=== PATIENT | male | born 1980 | race Caucasian/White ===

== ENCOUNTER 2016-10-26 16:41 | Emergency (ER) | payer BC, OTHER ==
--- NOTE | 2016-10-26 17:05 | ED ---
Upper Extremity HPI - General Chief Complaint: Extremity Injury, Upper Stated Complaint: Finger Smashed - [facility] Time Seen by Provider: 10/26/16 16:52 Source: patient, RN notes reviewed Mode of arrival: ambulatory Limitations: no limitations - History of Present Illness Initial Comments: Patient is a 35-year-old male presents to the emergency room for evaluation of right index finger injury. Patient states he was putting shopping carts away at work and accidentally got his finger stuck between 2 shopping carts. Patient states the shopping cart smashed his right index finger. Patient states he's having pain at the distal phalanx. Patient denies any numbness or tingling in his finger. Patient denies taking anything for pain. Patient states the incident happened around 2:30 PM. - Related Data Home Medications Medication Instructions Recorded Confirmed Ascorbic Acid [Vitamin C] 500 mg PO DAILY 10/26/16 10/26/16 Calcium Carbonate [Calcium] 600 mg PO DAILY 10/26/16 10/26/16 Multivitamins, Thera [Multivitamin 1 tab PO DAILY 10/26/16 10/26/16 (formulary)] Allergies Allergy/AdvReac Type Severity Reaction Status Date / Time No Known Allergies Allergy Verified 10/26/16 17:09 Review of Systems ROS Statement: Those systems with pertinent positive or pertinent negative responses have been documented in the HPI. ROS Other: All systems not noted in ROS Statement are negative. Past Medical History Past Medical History: No Reported History History of Any Multi-Drug Resistant Organisms: None Reported Past Surgical History: No Surgical Hx Reported Past Psychological History: No Psychological Hx Reported Smoking Status: Never smoker Past Alcohol Use History: None Reported Past Drug Use History: None Reported General Exam - General Exam Comments Initial Comments: Sitting in exam room, no distress Limitations: no limitations General appearance: alert, in no apparent distress Head exam: Present: atraumatic, normocephalic, normal inspection Eye exam: Present: normal appearance ENT exam: Present: normal exam Neck exam: Present: normal inspection Respiratory exam: Absent: respiratory distress Right Hand Wrist exam: Present: tenderness (Wrist on palpating over distal phalanx of index finger. A small subungual hematoma noted.) Neuro motor exam: Present: wrist extension intact, thumb opposition intact, thumb IP flexion intact, thumb adduction intact, fingers 2-5 abduction intact Vascular: Present: normal capillary refill (Capillary refill less than 2 seconds ), radial pulse (2+), ulnar pulse (2+) Back exam: Present: normal inspection Neurological exam: Present: alert, oriented X3, CN II-XII intact, normal gait Psychiatric exam: Present: normal affect, normal mood Skin exam: Present: warm, dry, intact, normal color. Absent: rash Course Vital Signs 10/26/16 10/26/16 16:48 18:12 Temperature 98.4 F 98.1 F Pulse Rate 64 61 Respiratory 20 18 Rate Blood Pressure 154/67 140/70 O2 Sat by Pulse 98 97 Oximetry Medical Decision Making - Medical Decision Making Patient is a 35-year-old male presents to the emergency room for evaluation of right index finger pain. Patient got his next finger caught between 2 shopping carts at work. Right finger x-ray shows soft tissue foreign body without acute fracture or dislocation seen. Foreign body from old injury. Patient has no open wounds or lacerations noted. Advised patient to ice and take Tylenol or Motrin for pain. Patient states he understands everything that was discussed with him. Return parameters discussed. Case discussed with Dr. Thorpe. - Radiology Data Radiology results: report reviewed, image reviewed Disposition Clinical Impression: Sprain of index finger Disposition: HOME SELF-CARE Condition: Good Instructions: Finger Sprain (ED) Additional Instructions: Ice on and off for 10-15 minutes for the next 24-48 hours. Tylenol or Motrin as needed for pain. Please follow up with primary care provider if symptoms are not improving in 7-10 days. If new symptoms develop or symptoms worsen, please return to the ER. Referrals: Nonstaff,Physician [Primary Care Provider] - 1-2 days Time of Disposition: 17:31
[2016-10-26] MEDS ORDERED: ACETAMINOPHEN TAB 325 MG TAB PO STA (17:17)
--- NOTE | 2016-10-26 17:42 | XR ---
EXAMINATION TYPE: XR finger RT DATE OF EXAM: 10/26/2016 5:20 PM COMPARISON: NONE HISTORY: Crushing injury today with pain TECHNIQUE: 3 views right second finger are acquired. FINDINGS: No acute fracture or dislocation is seen. Joint spaces are preserved. There is punctate foreign body level proximal metaphysis middle phalanx along the radial and volar watt rface. IMPRESSION: There is soft tissue foreign body without acute fracture or dislocation seen.
[2016-10-26 18:13] VITALS: BP 140/70; PULSE 61; RESP 18; TEMP 98.1
== END 2016-10-26 18:12 | disposition home or self-care (01) ==
LOC: EC 16:41
DX: S63.610A Unspecified sprain of right index finger, initial encounter (principal); W23.0XXA Caught, crushed, jammed, or pinched between moving objects, initial encounter; Y99.0 Civilian activity done for income or pay; Z79.899 Other long term (current) drug therapy
CPT/HCPCS: 99283

== ENCOUNTER 2018-06-12 12:29 | Emergency (ER) | payer OTHER ==
[2018-06-12 12:56] VITALS: TEMP 98.1
--- NOTE | 2018-06-12 13:22 | ED ---
Fall HPI - General Chief Complaint: Fall Stated Complaint: [facility]-trip & fall/head lac Time Seen by Provider: 06/12/18 13:10 Source: patient, RN notes reviewed, old records reviewed Mode of arrival: ambulatory - History of Present Illness Initial Comments: This Patient is a 37-year-old male who presents emergency room today with chief complaint of a fall at work. Patient reports he was walking, tripped over a pallet. He reports that he fell and hit his head on a cardboard compactor. Patient states that he hit this left side of his head and did lose consciousness. He reports he woke up shortly after with his coworker standing around him. He denies any neck pain. He states that since that time he's had no vomiting. He has been alert and oriented. Coworker dropped him off here. He does have a small laceration over his left parietal scalp. Patient reports his tetanus is up-to-date. Patient denies any other complaints. - Related Data Home Medications Medication Instructions Recorded Confirmed Ascorbic Acid [Vitamin C] 500 mg PO DAILY 10/26/16 10/26/16 Calcium Carbonate [Calcium] 600 mg PO DAILY 10/26/16 10/26/16 Multivitamins, Thera [Multivitamin 1 tab PO DAILY 10/26/16 10/26/16 (formulary)] Allergies Allergy/AdvReac Type Severity Reaction Status Date / Time No Known Allergies Allergy Verified 06/12/18 12:56 Review of Systems ROS Statement: Those systems with pertinent positive or pertinent negative responses have been documented in the HPI. ROS Other: All systems not noted in ROS Statement are negative. Past Medical History Past Medical History: No Reported History History of Any Multi-Drug Resistant Organisms: None Reported Past Surgical History: No Surgical Hx Reported Past Psychological History: No Psychological Hx Reported Smoking Status: Never smoker Past Alcohol Use History: None Reported Past Drug Use History: None Reported General Exam - General Exam Comments Initial Comments: 37-year-old male. Limitations: no limitations General appearance: alert, in no apparent distress Head exam: Present: normocephalic, normal inspection, other (Present meters hematoma over the left parietal scalp. The area of less than 1 cm laceration that is bleeding is well-controlled. There is well approximated.). Absent: atraumatic Eye exam: Present: normal appearance, PERRL, EOMI. Absent: scleral icterus, conjunctival injection, periorbital swelling ENT exam: Present: normal exam, mucous membranes moist Neck exam: Present: normal inspection. Absent: tenderness, meningismus, lymphadenopathy Respiratory exam: Present: normal lung sounds bilaterally. Absent: respiratory distress, wheezes, rales, rhonchi, stridor Cardiovascular Exam: Present: regular rate, normal rhythm, normal heart sounds. Absent: systolic murmur, diastolic murmur, rubs, gallop, clicks GI/Abdominal exam: Present: soft, normal bowel sounds. Absent: distended, tenderness, guarding, rebound, rigid Extremities exam: Present: normal inspection, full ROM, normal capillary refill. Absent: tenderness, pedal edema, joint swelling, calf tenderness Back exam: Present: normal inspection Course Vital Signs 06/12/18 12:54 Temperature 98.1 F Pulse Rate 64 Respiratory 18 Rate Blood Pressure 126/81 O2 Sat by Pulse 100 Oximetry Medical Decision Making - Medical Decision Making Patient is a 37-year-old male who presents emergency Department today with complaints of tripping at work. He hit his head. Patient has a small hematoma over the left parietal scalp with a small laceration. Bleeding is well- controlled. He was conscious. CT of the brain was completed. He does have some evidence of a subarachnoid cysts CSF collection. Recommended further evaluation with MRI. There is no acute intercranial abnormality. Patient was informed of the CT results. Discussed the follow-up with his primary neurologist. He does see a specialist at [facility]. Patient will be discharged at this time is stable condition discussed return parameters. - Radiology Data Radiology results: report reviewed Acute intracranial hemorrhage, mass effect or midline shift is seen. Prominent CSF collection in the posterior fossa can be associated with arachnoid cyst or prominent cisterna magna. Recommended MRI. Density along the inner table of the left frontal lobe may be in the basis of osteoma or calcified meningioma. Recommend follow-up with MRI. Disposition Clinical Impression: Head injury, Scalp hematoma Disposition: HOME SELF-CARE Condition: Good Instructions: Fall Prevention for Older Adults (ED) Additional Instructions: Patient has have close follow-up with primary care physician. Follow-up in regards to CT findings of the cyst. Return to emergency department if any alarming signs or symptoms occur. Monitor for any concerns for altered mental status. Monitor the skin area for signs of infection. Place ice over area. Is patient prescribed a controlled substance at d/c from ED?: No Referrals: None,Stated [Primary Care Provider] - 1-2 days Gisele Rodriguez MD [STAFF PHYSICIAN] - 1-2 days Time of Disposition: 14:40
--- NOTE | 2018-06-12 14:12 | CT ---
EXAMINATION TYPE: CT brain wo con DATE OF EXAM: 06/12/2018 COMPARISON: None HISTORY: Trip and Fall at Work; [facility] CT DLP: 1099.4 mGycm. Automated Exposure Control for Dose Reduction was Utilized. TECHNIQUE: CT scan of the head is performed without contrast. FINDINGS: There is no acute intracranial hemorrhage, mass effect, or midline shift identified. The ventricles and sulci are within normal limits in size. 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 No evidence of acute hemorrhage or midline shift. Prominent CSF space in the posterior fossa can be a ssociated with a prominent cisterna magna or arachnoid cyst. Additionally there is an ossified densit y along the inner table of the left frontal convexity which could be associated with an osteoma or ca lcified meningioma. IMPRESSION: 1. No acute intracranial hemorrhage, mass effect, or midline shift is seen. 2. prominent CSF collection posterior fossa can be associated with an arachnoid cyst or prominent cis terna magna. Recommend MRI. 3. Density along the inner table of the left frontal lobe may been the basis of an osteoma or calcifi ed meningioma recommend follow-up MRI.
[2018-06-12 15:02] VITALS: BP 132/92; PULSE 63; RESP 16
== END 2018-06-12 14:52 | disposition home or self-care (01) ==
LOC: EC 12:29
DX: S01.01XA Laceration without foreign body of scalp, initial encounter (principal); G93.0 Cerebral cysts; W01.111A Fall on same level from slipping, tripping and stumbling with subsequent striking against power tool or machine, initial encounter; Y93.01 Activity, walking, marching and hiking; Y92.69 Other specified industrial and construction area as the place of occurrence of the external cause; Y99.0 Civilian activity done for income or pay
CPT/HCPCS: 70450; 82075; 99284

== ENCOUNTER → 2018-06-15 | Outpatient (CLI) | payer OTHER ==
--- NOTE | 2018-06-15 22:47 | MR ---
EXAMINATION TYPE: MR brain wo con DATE OF EXAM: 06/15/2018 COMPARISON: CT brain from 3 days ago. HISTORY: Contusion of head, initial encounter, seizures from childhood, left side weakness TECHNIQUE: Multiplanar, multisequence imaging of the brain and brainstem is performed without IV cont rast. FINDINGS: Diffusion weighted images demonstrate no evidence of a recent infarct or other diffusion abnormality. There is prominence of CSF posterior aspect posterior fossa could reflect dheeraj cisterna magna. There is mild prominence of the ventricles out of proportion to degree of sulcal effacement. Fourth ventric le is also mildly prominent. No significant change from recent CT. Septum pellucidum vergae is redemo nstrated. No suspicious intraparenchymal blood product is identified and T2 star weighted images. The re is rare focus of T2 hyperintensity scattered throughout the white matter. 2-4 small scattered lesi ons are present. T2 coronal weighted images show hippocampal gyri appear symmetric and felt within no rmal limits. Midline structures demonstrate normal morphology. The craniocervical junction appears within normal limits. Normal vascular flow voids are present. Dominant left vertebral artery incidentally noted. Th e visualized sinuses are clear and the globes are intact. IMPRESSION: Mild generalized hydrocephalus felt present. Minimal nonspecific white matter changes. De Santiago spected negative cisterna magna over an arachnoid cyst posterior aspect midline posterior fossa.
== END ==
LOC: RADMRIMAIN 19:23
PROVIDERS: ATTEND Emergency Medicine
DX: R90.89 Other abnormal findings on diagnostic imaging of central nervous system (principal)
CPT/HCPCS: 70551

== ENCOUNTER → 2018-06-17 | Outpatient (CLI) | payer OTHER ==
--- NOTE | 2018-06-17 14:49 | XR ---
EXAMINATION TYPE: XR elbow complete LT DATE OF EXAM: 06/17/2018 COMPARISON: NONE HISTORY: Pain FINDINGS: Three views of the elbow demonstrate no pathologic joint effusion. The osseous structures are intact . There is no acute fracture or dislocation. Small olecranon spur noted. IMPRESSION: 1. No acute fracture or dislocation. If symptoms persist follow-up study in 7 to 10 days could be ob tained.
== END | disposition home or self-care (01) ==
LOC: RADXRMAIN 14:28
PROVIDERS: ATTEND Emergency Medicine
DX: S50.02XA Contusion of left elbow, initial encounter (principal)

== ENCOUNTER → 2019-07-12 | Outpatient (CLI) | payer OTHER ==
--- NOTE | 2019-07-12 13:40 | XR ---
EXAMINATION TYPE: XR ankle complete LT, XR foot complete LT DATE OF EXAM: 07/12/2019 CLINICAL HISTORY: Pain after fall injury. TECHNIQUE: Frontal, lateral and oblique images of the left ankle and foot are obtained. COMPARISON: None. FINDINGS: There is no acute fracture/dislocation evident in the left ankle. The ankle mortise appea rs within normal limits. The overlying soft tissue appears unremarkable. There is no acute fracture or dislocation evident in the left foot. Some flexion in the distal toes. Some varus positioning distal fourth and fifth toes. Overlying soft tissue is unremarkable. IMPRESSION: There is no acute fracture or dislocation in the left ankle or foot.
--- NOTE | 2019-07-12 13:42 | XR ---
EXAMINATION TYPE: XR elbow complete RT DATE OF EXAM: 07/12/2019 CLINICAL HISTORY: Right elbow pain after fall TECHNIQUE: Frontal, lateral and oblique images of the right elbow are obtained. COMPARISON: None FINDINGS: There is no acute fracture/dislocation evident in the right elbow. No abnormal fat pad si gns are seen. The overlying soft tissue appears unremarkable. IMPRESSION: There is no acute fracture or dislocation in the right elbow.
== END | disposition home or self-care (01) ==
LOC: RADXRMAIN 12:34
PROVIDERS: ATTEND Emergency Medicine
DX: M25.521 Pain in right elbow (principal); M25.572 Pain in left ankle and joints of left foot

== ENCOUNTER 2023-09-20 14:53 | Emergency (ER) | payer OTHER ==
[2023-09-20 15:39] VITALS: TEMP 98.1
[2023-09-20] MEDS: DIPH,PERTUS(ACELL)TETVAC-LF 0.5 ML VIAL IM ONE (15:52)
--- NOTE | 2023-09-20 15:52 | ED ---
General Adult HPI - General Chief complaint: Wound/Laceration Stated complaint: R hand laceration Time Seen by Provider: 09/20/23 15:30 Source: patient, RN notes reviewed Mode of arrival: ambulatory Limitations: no limitations - History of Present Illness Initial comments: 42-year-old male presents to the emergency department for evaluation of left hand injury. Patient reports that he had a blister on his left hand that was itching. He states that he was itching his hand with a knife which he typically does but states that he accidentally cut himself too deep. He denies any significant past medical history. He is unsure of his last tetanus vaccination. - Related Data Home Medications Medication Instructions Recorded Confirmed Ascorbic Acid [Vitamin C] 500 mg PO DAILY 10/26/16 10/26/16 Calcium Carbonate [Calcium] 600 mg PO DAILY 10/26/16 10/26/16 Multivitamins, Thera [Multivitamin 1 tab PO DAILY 10/26/16 10/26/16 (formulary)] Previous Rx's Medication Instructions Recorded Cephalexin [Keflex] 500 mg PO BID #14 cap 09/20/23 Allergies Allergy/AdvReac Type Severity Reaction Status Date / Time No Known Allergies Allergy Verified 06/12/18 12:56 Review of Systems ROS Statement: Those systems with pertinent positive or pertinent negative responses have been documented in the HPI. ROS Other: All systems not noted in ROS Statement are negative. Past Medical History Past Medical History: No Reported History History of Any Multi-Drug Resistant Organisms: None Reported Past Surgical History: No Surgical Hx Reported Past Psychological History: No Psychological Hx Reported Past Alcohol Use History: None Reported Past Drug Use History: None Reported General Exam Limitations: no limitations General appearance: alert, in no apparent distress Head exam: Present: atraumatic, normocephalic, normal inspection Eye exam: Present: normal appearance, PERRL, EOMI. Absent: scleral icterus, conjunctival injection, periorbital swelling Respiratory exam: Present: normal lung sounds bilaterally. Absent: respiratory distress, wheezes, rales, rhonchi, stridor Cardiovascular Exam: Present: regular rate, normal rhythm, normal heart sounds. Absent: systolic murmur, diastolic murmur, rubs, gallop, clicks Extremities exam: Present: normal inspection, full ROM, normal capillary refill. Absent: tenderness, pedal edema, joint swelling, calf tenderness Neurological exam: Present: alert, oriented X3 Psychiatric exam: Present: normal affect, normal mood Skin exam: Present: warm, dry, normal color, other (1cm flap laceration over the left palm). Absent: intact Course Vital Signs 09/20/23 09/20/23 15:19 16:30 Temperature 98.1 F Pulse Rate 72 78 Respiratory 18 16 Rate Blood Pressure 218/128 176/111 O2 Sat by Pulse 98 96 Oximetry Medical Decision Making - Medical Decision Making Was pt. sent in by a medical professional or institution (CHRISSY Mustafa, AIR POLLUTION AUDITOR, urgent care, hospital, or [facility]...) When possible be specific @ -No Did you speak to anyone other than the patient for history (EMS, parent, family, police, friend...)? What history was obtained from this source @ -No Did you review nursing and triage notes (agree or disagree)? Why? @ -I reviewed and agree with nursing and triage notes Were old charts reviewed (outside hosp., previous admission, EMS record, old EKG, old radiological studies, urgent care reports/EKG's, [facility] records)? Report findings @ -No old charts were reviewed Differential Diagnosis (chest pain, altered mental status, abdominal pain women, abdominal pain men, vaginal bleeding, weakness, fever, dyspnea, syncope, headache, dizziness, GI bleed, back pain, seizure, CVA, palpatations, mental health, musculoskeletal)? @ -Laceration, abrasion, skin tear, this list is not all inclusive EKG interpreted by me (3pts min.). @ -None X-rays interpreted by me (1pt min.). @ -None done CT interpreted by me (1pt min.). @ -None done U/S interpreted by me (1pt. min.). @ -None done What testing was considered but not performed or refused? (CT, X-rays, U/S, labs )? Why? @ -None What meds were considered but not given or refused? Why? @ -None Did you discuss the management of the patient with other professionals (professionals i.e. CHRISSY Mustafa, AIR POLLUTION AUDITOR, lab, RT, psych nurse, social psychologist, chemistry intern, teacher, animal services officer, adult protective caseworker)? Give summary @ -No Was smoking cessation discussed for >3mins.? @ -No Was critical care preformed (if so, how long)? @ -No Were there social determinants of health that impacted care today? How? (Homelessness, low income, unemployed, alcoholism, drug addiction, transportation, low edu. Level, literacy, decrease access to med. care, fdc, rehab)? @ -No Was there de-escalation of care discussed even if they declined (Discuss DNR or withdrawal of care, Hospice)? DNR status @ -No What co-morbidities impacted this encounter? (DM, HTN, Smoking, COPD, CAD, Cancer, CVA, ARF, Chemo, Hep., AIDS, mental health diagnosis, sleep apnea, morbid obesity)? @ -None Was patient admitted / discharged? Hospital course, mention meds given and route, prescriptions, significant lab abnormalities, going to OR and other pertinent info. @ -Discharged. Patient presented to the emergency department for evaluation of left hand injury. He reports that he cut himself with a knife. He has a small flap laceration to the palm of his left hand. This was cleaned and repaired with skin glue and Steri-Strips. He was updated on his tetanus vaccination. Patient started on Keflex. Patient found to be hypertensive in the ED. He is asymptomatic at this time including no chest pain, shortness of breath, headaches. Patient had an order for hydralazine in the ED. Discussed with patient that he needs to follow-up with a primary care provider for further evaluation of this.Patient understanding and agreeable to this. Case discussed with Dr. Rasmussen Undiagnosed new problem with uncertain prognosis? @ -No Drug Therapy requiring intensive monitoring for toxicity (Heparin, Nitro, Insulin, Cardizem)? @ -No Were any procedures done? @ -No Diagnosis/symptom? @ -Laceration Acute, or Chronic, or Acute on Chronic? @ -Acute Uncomplicated (without systemic symptoms) or Complicated (systemic symptoms)? @ -Uncomplicated Side effects of treatment? @ -No Exacerbation, Progression, or Severe Exacerbation? @ -No Poses a threat to life or bodily function? How? (Chest pain, [place], MA, pneumonia, PE, COPD, DKA, ARF, appy, cholecystitis, CVA, Diverticulitis, Homicidal, Suicidal, threat to staff... and all critical care pts) @ -No Disposition Clinical Impression: Laceration Disposition: HOME SELF-CARE Condition: Stable Instructions (If sedation given, give patient instructions): Steristrips (ED), Acute Wounds (ED) Additional Instructions: Please follow up with your primary care provider for elevated blood pressure. Monitor your blood pressure at home. Return to the emergency department for new or worsening symptoms . Prescriptions: Cephalexin [Keflex] 500 mg PO BID #14 cap Is patient prescribed a controlled substance at d/c from ED?: No Referrals: Blue Chilel MD [Primary Care Provider] - 1-2 days
[2023-09-20 16:45] VITALS: BP 176/111; PULSE 78; RESP 16
[2023-09-20] MEDS: hydrALAZINE HCL 25 MG TAB PO STA (17:24)
== END 2023-09-20 17:28 | disposition home or self-care (01) ==
LOC: EC 14:53
DX: S61.411A Laceration without foreign body of right hand, initial encounter (principal); Z23 Encounter for immunization; W26.0XXA Contact with knife, initial encounter
CPT/HCPCS: 90471; 90715; 99282

== ENCOUNTER → 2024-04-02 | Outpatient (CLI) | payer OTHER ==
--- NOTE | 2024-04-02 19:54 | MR ---
EXAMINATION TYPE: MR brain wo con DATE OF EXAM: 04/02/2024 COMPARISON: 06/15/2018 HISTORY: dizziness, amnesia, cognitive and awareness symptoms. CONTRAST: Performed utilizing 0 mL intravenous Gadavist gadolinium contrast. TECHNIQUE: Multiplanar, multiecho imaging on a 3.0 Chanell magnet is performed through the brain. Stud y is performed within 24 hours of arrival to the hospital. The craniovertebral junction is normal. The pituitary is normal. Optic chiasm is visualized appears normal Diffusion-weighted imaging is performed. No abnormal hyperintensity is present to suggest an acute i ntracranial infarct or acute ischemic change. Venous angioma appears to be in the left frontal lobe, a normal variant. There are scattered punctate areas of hyperintensity on T2 and Inversion Recovery weighted sequences which are non-specific but can be related to microvascular ischemic changes. Some of these are new. T he largest which is in the left frontal lobe centrum semiovale measuring 1.0 cm. Reference lesions: 1. Right subcortical frontal lobe white matter measuring 0.7 x 0.5 cm. Series 601 image 19. 2. Left frontal lobe centrum semiovale measuring 1.0 x 0.7 cm. Series 601 image 25. There is an increase in number and increase in size from the comparison 2018. Findings are nonspecifi c. Differential diagnosis could include multiple sclerosis, vasculitis, migraine headaches, white mat ter ischemic changes, Lyme disease. Ventricles and sulci are appropriate for the patient age. There is a patent cavum septum lucidum cava vergae, normal variant. No temporal horn dilatation is evident. IMPRESSION: 1. Multiple scattered white matter changes. There is an increase in number as well as an increase in size of prior white matter lesions. Consider multiple sclerosis. Differential diagnosis is discussed above. [facility], Workstation: [facility], 04/02/2024 7:51 PM
== END | disposition home or self-care (01) ==
LOC: RADMRIMAIN 18:46
PROVIDERS: ATTEND Family Medicine
DX: R41.3 Other amnesia (principal); R41.89 Other symptoms and signs involving cognitive functions and awareness; R90.82 White matter disease, unspecified
CPT/HCPCS: 70551